=== PATIENT | male | born 1975 | race Caucasian/White ===

== ENCOUNTER → 2018-01-08 16:58 | Outpatient (CLI) | payer OTHER, SELFPAY ==
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
== END ==
PROVIDERS: Family Provider Family Medicine; PCP Family Medicine; Referring Provider Family Medicine; Visit Provider Family Medicine
DX: S80.00XA Contusion of unspecified knee, initial encounter (principal); S13.4XXA Sprain of ligaments of cervical spine, initial encounter
CPT/HCPCS: 72040; 73564

== ENCOUNTER → 2018-01-30 11:51 | Outpatient (CLI) | payer OTHER, SELFPAY ==
[2016-12-02 08:51] VITALS: BMI 29.6
--- NOTE | 2018-01-30 11:57 | RAD_ITS ---
STUDY: X-RAY - SACRUM/COCCYX REASON FOR EXAM: Male, 42 years old. Fall and pain TECHNIQUE: 3 view(s) of the sacrum and coccyx were obtained. COMPARISON: None. FINDINGS: Normal bilateral sacroiliac joints. Normal visualized sacral ala and fused sacral bodies. Normal sacrococcygeal junction with a normal angulation. Normal coccygeal segments. The presacral soft tissue structures are unremarkable. Lower abdominal wall hernia mesh. RAD/Sacrum-Coccyx min 2 Views IMPRESSION: No acute osseous injury is evident. Electronically Signed: Nikita Louis MD at 5:09 EST Tel , Service support ,
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
== END ==
PROVIDERS: Family Provider Family Medicine; PCP Family Medicine; Referring Provider Family Medicine; Visit Provider Family Medicine
DX: S30.0XXA Contusion of lower back and pelvis, initial encounter (principal)
CPT/HCPCS: 72220

== ENCOUNTER 2018-06-24 11:00 | Outpatient (RCR) | payer OTHER, SELFPAY ==
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
--- NOTE | 2018-07-14 08:47 | HP.PTDCNRP_ITS ---
HP - Discharge Summary (1) - Patient Information IZABELLA ROWLAND was seen in my office for initial evaluation on 02/04/18. The following Plan of Care was established for this patient: Initial Frequency: 2x /Week Initial Duration: 4 Weeks - Anticipated Interventions Patient/Client Instruction: Educate patient on: Condition, Plan of Care For the Purpose of:: To decrease pain, To increase ROM, To improve nutrient delivery to tissue, To increase oxygenation perfusion, To improve muscle performance and motor function, To increase tolerance to activity/condition/position, To improve ability of physical actions for home/c ommunity/work/leisure, To improve health of tissue, To decrease soft tissue restriction, To increase flexibility/ROM, To reduce risk of recurrence, To improve ability to perform tasks related to life management Therapeutic Exercise to Include: Strength training, Postural training, Flexibilty training, Active ROM For the Purpose of:: To decrease pain, To increase ROM, To increase tolerance to activity/condition/position, To improve performance and independence with ADL's, To improve ability of physical actions for home/community/work/leisure, To improve health of tissue, To decrease soft tissue restriction, To increase flexibility/ROM, To reduce risk of recurrence, To improve ability to perform tasks related to life management Manual Therapy Techniques to Include: Soft tissue mobilization Comment: STM CERVICAL For the Purpose of:: To decrease pain, To increase ROM, To improve nutrient delivery to tissue, To increase oxygenation perfusion, To improve muscle performance and motor function, To improve health of tissue, To decrease soft tissue restriction, To foster healthy habits This patient was last seen in our office 06/24/18. Pertinent comments regarding their Physical therapy will appear below: Pt. was treated for his neck, back and leg pain. Pt. had a longer episode of care for her neck and L scapular region. He was ultimately treated for his neck pain with thoracic mobilzations and DN. PT. made good progress. Pt. will be DC t o HEP at this point in time. At this point I will be discontinuing this patient from physical therapy. I would be happy to see this patient again in the future if found appropriate by the physician. Thank you! Charles Thomas, JESSICA
== END 2018-06-24 19:00 | disposition home or self-care (01) ==
LOC: PT 11:00
PROVIDERS: Family Provider Family Medicine; PCP Family Medicine; Referring Provider Family Medicine; Visit Provider Family Medicine
DX: M54.2 Cervicalgia (principal); M25.562 Pain in left knee
CPT/HCPCS: 97014; 97035; 97110; 97140; 97162; 97530; G0283

== ENCOUNTER → 2019-12-17 14:17 | Outpatient (CLI) | payer OTHER, SELFPAY | PROVIDERS: PCP Family Medicine; Referring Provider Family Medicine; Visit Provider Registered Nurse | DX: J06.9 Acute upper respiratory infection, unspecified (principal) | CPT/HCPCS: 87635; U0003 ==

== ENCOUNTER → 2020-11-09 08:12 | Outpatient (CLI) | payer OTHER, SELFPAY ==
[2020-11-09 10:35] LABS: ALB/GLOB Ratio 0.8 RATIO (0.9-2.4); AST(SGOT) 18 U/L (15-37); Alanine Aminotransfer ALT/SGPT 52 U/L (16-61); Albumin, Serum 3.5 g/dL (3.2-5.0); Alkaline Phosphatase 116 U/L (45-117); Anion Gap 7 (5-15); BUN 13 mg/dL (7-18); BUN/Creat Ratio 16.7 RATIO (10-20); Calcium,Total 8.7 mg/dL (8.5-10.1); Chloride 98 mmol/L (98-107); Cholesterol 291 mg/dL (200); Creatinine, Serum 0.78 mg/dL (0.70-1.30); EST Glomerular Filtration Rate 114 mL/min (>60); Est Glom Filt Rate - Afr Amer 138 mL/min (>60); Globulin 4.6 g/dL (2.2-4.2); Glucose 288 mg/dL (74-106); High Density Lipoprotein 43 mg/dL; Potassium 3.8 mmol/L (3.5-5.1); Protein, Total 8.1 g/dL (6.4-8.2); Sodium Level 134 mmol/L (136-145); Triglycerides 869 mg/dL
== END ==
PROVIDERS: PCP Family Medicine; Referring Provider Family Medicine; Visit Provider Family Medicine
DX: Z13.220 Encounter for screening for lipoid disorders (principal); Z82.49 Family history of ischemic heart disease and other diseases of the circulatory system
CPT/HCPCS: 36415; 80053; 80061

== ENCOUNTER 2021-04-10 07:54 | Outpatient (CLI) | payer OTHER, SELFPAY ==
[2021-04-10 10:26] LABS: Anion Gap 8 (5-15); BUN 17 mg/dL (7-18); BUN/Creat Ratio 19.6 RATIO (10-20); Calcium,Total 8.4 mg/dL (8.5-10.1); Chloride 103 mmol/L (98-107); Creatinine, Serum 0.87 mg/dL (0.70-1.30); EST Glomerular Filtration Rate 101 mL/min (>60); Est Glom Filt Rate - Afr Amer 122 mL/min (>60); Glucose 181 mg/dL (74-106); Potassium 4.1 mmol/L (3.5-5.1); Sodium Level 138 mmol/L (136-145); Thyroid Stim Hormone (TSH) 1.81 uIU/mL (0.358-3.74)
[2021-04-12 15:37] LABS: Cholesterol 202 mg/dL (200); High Density Lipoprotein 43 mg/dL; Triglycerides 321 mg/dL; Very Low Density Lipoprotein 64 mg/dL (5-40)
== END 2021-04-10 23:59 | disposition home or self-care (01) ==
LOC: MTLAB 07:56
PROVIDERS: PCP Family Medicine; Referring Provider Family Medicine; Visit Provider Family Medicine
DX: E11.9 Type 2 diabetes mellitus without complications (principal)
CPT/HCPCS: 36415; 80048; 80061; 84403; 84443

== ENCOUNTER → 2022-01-03 | Outpatient (CLI) | payer OTHER, SELFPAY ==
[2022-01-03 18:08] LABS: Hematocrit 44.7 % (40-54); Hemoglobin 15.4 g/dL (13.0-16.5); Mean Corp Hgb Conc 34.5 g/dL (32-36); Mean Corpuscular Hgb 30.9 pg (27.0-32.0); Mean Corpuscular Volume 89.6 fL (80-94); Mean Platelet Vol. 11.1 fl (6.2-12.0); Platelet Count 189 K/mm3 (150-450); RBC Distribution Width CV 12.9 % (11.6-14.6); RBC Distribution Width SD 42.3 fl (35.1-43.9); Red Blood Count 4.99 M/mm3 (4.6-6.2); White Blood Count 6.2 K/mm3 (4.4-11.0)
[2022-01-03 18:31] LABS: Anion Gap 7 (5-15); BUN 20 mg/dL (7-18); BUN/Creat Ratio 16.7 RATIO (10-20); Calcium,Total 8.9 mg/dL (8.5-10.1); Chloride 107 mmol/L (98-107); EST Glomerular Filtration Rate 69 mL/min (>60); Est Glom Filt Rate - Afr Amer 84 mL/min (>60); Glucose 104 mg/dL (74-106); Magnesium 2.3 mg/dL (1.6-2.6); Potassium 4.1 mmol/L (3.5-5.1); Sodium Level 139 mmol/L (136-145); Thyroid Stim Hormone (TSH) 1.63 uIU/mL (0.358-3.74)
== END | disposition home or self-care (01) ==
PROVIDERS: PCP Family Medicine; Referring Provider Family Medicine; Visit Provider Nurse Practitioner Family
DX: R00.2 Palpitations (principal)
CPT/HCPCS: 36415; 80048; 83735; 84443; 85027

== ENCOUNTER 2022-03-01 07:33 | Day surgery (SDC) | payer OTHER, SELFPAY ==
[2022-03-01] MEDS: Lactated Ringers 1,000 ML 15 ML IV (07:45)
[2022-03-01 07:58] VITALS: BP 126/80; PULSE 78; RESP 16; TEMP 36.4; O2SAT 95; BMI 28.8
--- NOTE | 2022-03-01 08:04 | HP.PCM_ITS ---
HPI - General HPI Narrative IZABELLA ROWLAND, is a 46 M who presents for screening colonoscopy. The patient has never had a colonoscopy in the past. He denies any family history of colon cancer. He denies any abdominal pain or blood in the stool. [facility] Medical History Dietary restriction Heartburn History of irregular heartbeat Hyperlipidemia, unspecified Injury of head and neck Leg cramps Non-smoker Normal Holter exam Type 2 diabetes mellitus without complications Home Medications empagliflozin 10 mg tablet (Jardiance) 10 mg PO DAILY 02/01/22 [History Last Taken Unknown] metformin 500 mg tablet 500 mg PO BID 02/01/22 [History Last Taken Unknown] rosuvastatin 5 mg tablet (Crestor) 5 mg PO DAILY 02/01/22 [History Last Taken Unknown] geriatric multivitamin-min 1 tab PO DAILY 02/28/22 [History Last Taken Unknown] Allergy/AdvReac Type Severity Reaction Status Date / Time No Known Allergies Allergy Verified 03/01/22 07:57 Family History (Updated 02/01/22 @ 09:54 by Khadijah Zaldivar) Father Colon cancer Mother Atrial flutter Surgical History History of hernia repair Hx of hand surgery Social History Smoking Status: Never smoker Past Medical/Surgical History Planned Operation Planned Operative Procedure/s: CSCOPE OA Previous Hospitalizations/Surgeries HX Hospitalizations: No Any Problems With Anesthesia: No You/Your Family Experience Fever (Hyperthermia) With Anes: No Cholinesterase deficiency: No Cardiovascular Hx Chest Pain within Last 2 months: No Hx Heart Attack: No Hx Hypertension: No Hx Cardiac Surgery/Stents/Etc.: No Respiratory Hx Chronic Obstructive Pulmonary Disease (COPD): No Hx Sleep Apnea: No Hx Respiratory Tract Infection/Cold (presently): No Do You Snore Loudly (louder than talking or can be heard): Yes Do You Often Feel Tired/ Fatigued/ Sleepy Dring Daytime?: No Has Anyone Observed You Stop Breathing During Sleep?: No Result (for STOP score): Negative Smoking Status: Never smoker Neurological Hx Seizures: No Hx Multiple Sclerosis: No Does patient have nerve stimulator: No Blood Disorder Hx Anemia: No Reproduction : No Genitourinary Hx Dialysis: No Musculoskeletal Hx Arthritis: No Hx Rheumatoid Arthritis: No Endocrine Hx Diabetes: No Thyroid Disease: No Psycho/Social Hx Depression: No Hx Dementia: No Miscellaneous Recent Exposure to Contagious Disease: No Allergies No Known Allergies Allergy (Verified 03/01/22 07:57) Discharge Is Pt Admitted From a Residential, or a Residential: No After D/C, Where Do you Plan to Go: Return Home Vital Signs Vital Signs Vital Signs: 03/01/22 07:58 03/01/22 07:58 Temperature 97.6 F L Temperature Source Temporal Pulse Rate 78 Respiratory Rate 16 Respiratory Pattern Normal Blood Pressure 126/80 H Blood Pressure Mean 95 Blood Pressure Source Monitor Blood Pressure Position Semi-Fowlers Blood Pressure Location Right Arm Pulse Ox 95 Oxygen Delivery Method Room Air Weight Weight: 218 lb 4.122 oz Body Mass Index (BMI) 28.8 Physical Exam Const alert and oriented x3 HEENT normocephalic Eyes PERRL Resp normal respiratory effort and normal air movement Cardio regular rate and regular rhythm GI soft to palpation, non-tender and non-distended Extremity normal to inspection Assessment & Plan Assessment/Plan (1) Encounter for screening for malignant neoplasm of colon: PLAN: I explained endoscopy in detail to the patient. I explained the risks including but not limited to stroke or heart attack with anesthesia, perforation of the GI tract, bleeding, infection. I explained that any of these could necessitate further emergency surgery. The patient understands and all questions were answered sufficiently. The patient wishes to proceed with procedure. Pj Rudd MD Pager: [facility] [address] [place] [address] [address] [place] [address] Office: Surgery Risks - Colonoscopy Risks Include but are not Limited To: Risks include but are not limited to: Bleeding, perforation requiring further surgery, inability to complete colonoscopy requiring barium enema.
--- NOTE | 2022-03-01 08:27 | OP.COLON_ITS ---
Patient Name: Nasir Sahu Procedure Date: 03/01/2022 8:06 AM Date of : 1975 Age: 46 Procedure: Colonoscopy Indications: Screening for colorectal malignant neoplasm Providers: Pj Rudd MD Referring MD: Pj Rudd MD Medicines: Monitored Anesthesia Care Patient Profile: This is a 46 year old male. Refer to note in patient chart for documentation of history and physical. Last Colonoscopy: none. The patient's first colonoscopy is today. Complications: No immediate complications. Procedure: Pre-Anesthesia Assessment: - Prior to the procedure, a History and Physical was performed, and patient medications and allergies were reviewed. The patient's tolerance of previous anesthesia was also reviewed. The risks and benefits of the procedure and the sedation options and risks were discussed with the patient. All questions were answered, and informed consent was obtained. Prior Anticoagulants: The patient has taken no previous anticoagulant or antiplatelet agents. After reviewing the risks and benefits, the patient was deemed in satisfactory condition to undergo the procedure. After I obtained informed consent, the scope was passed under direct vision. Throughout the procedure, the patient's blood pressure, pulse, and oxygen saturations were monitored continuously. The Colonoscope was introduced through the anus and advanced to the cecum, identified by appendiceal orifice and ileocecal valve. The colonoscopy was performed without difficulty. The patient tolerated the procedure well. The quality of the bowel preparation was good. Scope In: 8:16:09 AM Scope Withdrawal Time 0 hours 6 minutes 50 seconds Scope Out: 8:25:25 AM Total Procedure Duration Time 0 hours 9 minutes 16 seconds Findings: The entire examined colon appeared normal on direct and retroflexion views. Impression: - The entire examined colon is normal on direct and retroflexion views. - No specimens collected. Recommendation: - Discharge patient to home. - Resume previous diet. - Continue present medications. - Repeat colonoscopy in 10 years for screening purposes. Procedure Code(s): --- Professional --- 61151, Colonoscopy, flexible; diagnostic, including collection of specimen(s) by brushing or washing, when performed (separate procedure) Diagnosis Code(s): --- Professional --- Z12.11, Encounter for screening for malignant neoplasm of colon CPT copyright 2017 [employer]. All rights reserved. The codes documented in this report are preliminary and upon outboard motor mechanic review may be revised to meet current compliance requirements. Pj Rudd MD 03/01/2022 8:26:33 AM This report has been signed electronically. Number of Addenda: 0 Note Initiated On: 03/01/2022 8:06 AM
--- NOTE | 2022-03-01 08:28 | OP.CCLET_ITS ---
03/01/2022 Rohith Mccormick [address] [place] [address] Re : Colonoscopy procedure for Nasir Sahu Dear Dr. Mccormick This procedure was performed on Tuesday, March 01, 2022. My impressions and recommendations are as follows: Impressions : - The entire examined colon is normal on direct and retroflexion views. - No specimens collected. Recommendations : - Discharge patient to home. - Resume previous diet. - Continue present medications. - Repeat colonoscopy in 10 years for screening purposes. My findings are described in the full procedure note, which is enclosed. If I can be of further assistance, please feel free to contact me at Doctor phone number(s): , Work: . Sincerely, Pj Rudd MD 03/01/2022 8:26:33 AM This report has been signed electronically.
[2022-03-01 08:31] VITALS: BP 105/84; BP 126/80; PULSE 72; RESP 18; TEMP 36.4; O2SAT 95
[2022-03-01 08:35] VITALS: BP 107/80; BP 126/80; PULSE 72; RESP 18; O2SAT 93
[2022-03-01 08:40] VITALS: BP 106/83; BP 126/80; PULSE 69; RESP 18; O2SAT 94
[2022-03-01 08:45] VITALS: BP 117/88; BP 126/80; PULSE 68; RESP 20; TEMP 36.1; O2SAT 98
[2022-03-01 09:05] VITALS: BP 126/80
[2022-03-01 11:30] LABS: Bedside Glucose 135 mg/dL (74-106)
== END 2022-03-01 09:07 | disposition home or self-care (01) ==
LOC: EN 07:37 → AC 07:38
PROVIDERS: PCP Family Medicine; Referring Provider Surgery; Visit Provider Surgery
PROC: 0DJD8ZZ Inspection of Lower Intestinal Tract, Via Natural or Artificial Opening Endoscopic (ICD-10-PCS; CPT 45378; principal; 2022-03-01 08:25)
DX: Z12.11 Encounter for screening for malignant neoplasm of colon (principal); E11.9 Type 2 diabetes mellitus without complications; E78.5 Hyperlipidemia, unspecified; Z79.84 Long term (current) use of oral hypoglycemic drugs; Z79.899 Other long term (current) drug therapy; Z80.0 Family history of malignant neoplasm of digestive organs
CPT/HCPCS: G0121; 82962; J7120; J2405

== ENCOUNTER → 2023-01-22 | Outpatient (CLI) | payer OTHER, SELFPAY ==
[2023-01-22 11:17] LABS: ALB/GLOB Ratio 0.9 RATIO (0.9-2.4); AST(SGOT) 15 U/L (15-37); Alanine Aminotransfer ALT/SGPT 31 U/L (16-61); Albumin, Serum 3.7 g/dL (3.2-5.0); Alkaline Phosphatase 101 U/L (45-117); Anion Gap 7 (5-15); BUN 16 mg/dL (7-18); BUN/Creat Ratio 19.7 RATIO (10-20); Calcium,Total 8.9 mg/dL (8.5-10.1); Chloride 106 mmol/L (98-107); Cholesterol 203 mg/dL (200); Creatinine, Serum 0.81 mg/dL (0.70-1.30); EST Glomerular Filtration Rate 108 mL/min (>60); Est Glom Filt Rate - Afr Amer 130 mL/min (>60); Globulin 4.2 g/dL (2.2-4.2); Glucose 147 mg/dL (74-106); High Density Lipoprotein 53 mg/dL; Potassium 4.2 mmol/L (3.5-5.1); Protein, Total 7.9 g/dL (6.4-8.2); Sodium Level 137 mmol/L (136-145); Thyroid Stim Hormone (TSH) 1.25 uIU/mL (0.358-3.74); Triglycerides 363 mg/dL; Very Low Density Lipoprotein 73 mg/dL (5-40)
== END | disposition home or self-care (01) ==
LOC: MFPLAB 08:57
PROVIDERS: PCP Family Medicine; Visit Provider Family Medicine
DX: E11.9 Type 2 diabetes mellitus without complications (principal)
CPT/HCPCS: 36415; 80053; 80061; 84403; 84443

== ENCOUNTER 2023-02-13 06:15 | Emergency (ER) | payer OTHER, SELFPAY ==
[2023-02-13 06:16] VITALS: PULSE 71; RESP 14; TEMP 36; O2SAT 98; BMI 30.3
--- NOTE | 2023-02-13 06:18 | EKG12_ITS ---
Test Reason : CHEST PAIN Blood Pressure : / mmHG Vent. Rate : 072 BPM Atrial Rate : 072 BPM P-R Int : 172 ms QRS Dur : 130 ms QT Int : 402 ms P-R-T Axes : 027 079 040 degrees QTc Int : 440 ms Normal sinus rhythm Possible Left atrial enlargement Abnormal ECG Confirmed by BOLA MAN, LITZY ([id number]), scientific publications editor MARCUS GOTTLIEB ([id number]) on 02/17/2023 1:58:16 P M Referred By: GRETCHEN Confirmed By:LEIDA PLAZA MD
--- NOTE | 2023-02-13 06:38 | RAD_ITS ---
EXAM: XR CHEST, 2 VIEWS CLINICAL INDICATION: chest pain TECHNIQUE: Frontal and lateral views of the chest. COMPARISON: 2 view chest 01/30/2017 FINDINGS: LUNGS AND PLEURAL SPACES: Unremarkable. No consolidation or edema. No pneumothorax. No effusion. HEART: Unremarkable. Cardiac silhouette not enlarged. MEDIASTINUM: Central airways and mediastinal contour are unremarkable. BONES/JOINTS: Unremarkable. No acute fracture. SOFT TISSUES: Unremarkable. RAD/Chest PA and Lateral IMPRESSION: No radiographic evidence of acute cardiopulmonary disease. Electronically Signed: Maykel Huff MD at 7:17 EST ,
[2023-02-13 06:57] LABS: Absolute Lymphocyte Count 1.58 X10^3/uL (0.83-4.51); Absolute Neutrophil Count 2.3 X10^3/uL (2.0-7.7); Basophil# 0.03 X10^3/uL; Basophil% 0.7 % (0-1); Eosinophil# 0.11 X10^3/uL; Eosinophils% 2.4 % (0-5); Hematocrit 42.7 % (40-54); Hemoglobin 14.1 g/dL (13.0-16.5); Lymphocyte # 1.58 X10^3/ul (0.83-4.51); Lymphocyte % 34.6 % (19-41); Mean Corpuscular Hgb 29.5 pg (27.0-32.0); Mean Corpuscular Volume 89.3 fL (80-94); Monocyte# 0.49 X10^3/uL; Monocyte% 10.7 % (0-10); NRBC Flagged by Analyzer 0 % (0-5); Neutrophil # 2.33 X10^3/uL (2.7-7.7); Neutrophil % 51.2 % (47-70); Platelet Count 182 K/mm3 (150-450); RBC Distribution Width CV 12.5 % (11.6-14.6); RBC Distribution Width SD 41.2 fl (35.1-43.9); Red Blood Count 4.78 M/mm3 (4.6-6.2); White Blood Count 4.6 K/mm3 (4.4-11.0)
[2023-02-13] MEDS: Aspirin 81 MG TAB.CHEW 324 MG PO (06:58)
[2023-02-13 07:05] VITALS: BP 153/93
--- NOTE | 2023-02-13 07:14 | ED.VIS.CHEST ---
HPI History of Present Illness Chief Complaint: Chest Pain Informant: patient Narrative Narrative: Patient is a 47-year-old male with history of diabetes, hyperlipidemia and family history of coronary artery disease presenting with chest pain. Patient states has been getting mild intermittent chest pain over the left side for past few weeks. He actually has a stress test scheduled for March 10. He notes that he went to the gym this morning and noticed a sharp pain underneath his left nipple that radiated up to his shoulder and neck. He notes that when he was in radiology getting his chest x-ray taken here he took a deep breath it was slightly worse. He denies any shortness of breath or difficulty breathing. About 3 weeks ago he did have a mild cold and now has an intermittent cough but is not much of it. Notes when coming here he did have some chills but denies any diaphoresis, nausea or vomiting. Did have a cardiac catheterization 15 years ago which he states was normal. Patient has had some recent travel to [place] but denies any significantly long flights or immobilization. Denies any history of DVT or PE. No other complaints or concerns at this time. [facility] Medical History Dietary restriction Heartburn History of irregular heartbeat Hyperlipidemia, unspecified Injury of head and neck Leg cramps Non-smoker Normal Holter exam Type 2 diabetes mellitus without complications Home Medications empagliflozin 10 mg tablet (Jardiance) 10 mg PO DAILY 02/01/22 [History Last Taken Unknown] metformin 500 mg tablet 500 mg PO BID 02/01/22 [History Last Taken Unknown] rosuvastatin 5 mg tablet (Crestor) 5 mg PO DAILY 02/01/22 [History Last Taken Unknown] geriatric multivitamin-min 1 tab PO DAILY 02/28/22 [History Last Taken Unknown] Allergy/AdvReac Type Severity Reaction Status Date / Time No Known Allergies Allergy Verified 03/01/22 07:57 Family History Father Colon cancer Mother Atrial flutter Surgical History History of hernia repair Hx of hand surgery Social History Smoking Status: Never smoker ROS ROS ED Constitutional Constitutional ED: Denies chills or fever(s) Eyes Eyes: Denies change in vision Cardiovascular Cardiovascular: Reports as per HPI and chest pain; Denies palpitations Respiratory/Chest Respiratory/Chest: Denies cough, dyspnea or dyspnea on exertion Gastrointestinal Gastrointestinal: Denies abdominal pain, nausea or vomiting Musculoskeletal Musculoskeletal: Denies arthralgias, back pain or myalgias Integumentary Denies rash Neurologic Neurologic: Denies headache(s) or paresthesias Hematologic/Lymphatic Hematologic/Lymphatic: Denies easy bleeding or easy bruising EXAM Physical Exam Const Vital Signs: 02/13/23 06:16 02/13/23 06:18 02/13/23 07:05 Temperature 96.8 F L Temperature Source Temporal Pulse Rate 71 Respiratory Rate 14 Respiratory Effort Normal Blood Pressure Blood Pressure Mean Pulse Ox 98 Oxygen Delivery Method Room Air Room Air 02/13/23 07:05 02/13/23 08:13 Temperature Temperature Source Pulse Rate 60 Respiratory Rate 14 Respiratory Effort Blood Pressure 153/93 H 128/88 H Blood Pressure Mean 113 101 Pulse Ox 94 Oxygen Delivery Method Room Air Positive well nourished and well developed General Appearance ED: well developed and NAD HEENT Reports moist mucous membranes Eyes PERRL Neck supple and no JVD Chest Wall inspection of chest normal and palpation of chest normal Resp normal respiratory effort and clear to auscultation bilaterally Cardio regular rate, regular rhythm and no murmurs Peripheral Pulses: pulses 2+ throughout GI normal to inspection, nondistended, normoactive bowel sounds, soft to palpation and non-tender Extremity normal to inspection General Extremety ED: Negative for edema General Extremity: Negative for edema Neuro oriented x3 Sensorium / Orientation: awake and alert Motor Exam: Negative for general weakness Psych mental status grossly normal Skin no rashes or lesions noted and no wounds Heart Score History: Slightly/Non-Suspicious ECG: Normal Age: >45 - <65 years Risk Factors: >/= 3 Risk Factors or History of CAD Score: 3 MDM MDM MDM Narrative Medical decision making narrative: Patient is evaluated for intermittent chest pain has been waxing and waning over the past few weeks. Seems to have a pleuritic component. I does have up a strong history of coronary artery disease with his brothers and risk factors including diabetes and hyperlipidemia. Will obtain cardiac workup including delta high-sensitivity troponin. Will also check a D-dimer given the pleuritic nature of the pain and his travel to and from [place]. Anticipate that if workup is negative patient can be discharged home. Patient agreeable at this time. D dimer is normal. Initial high sensitivity troponin is normal. CBC and CMP otherwise largely unremarkable. He is mildly hyperglycemic but has known history of diabetes. On repeat evaluation has no further chest pain. Will be discharged home if delta high-sensitivity troponin is normal. Will follow-up outpatient for stress test. He is given return precautions. Patient agreeable to plan of care. Lab Data Attestation: I reviewed the patient's lab results. Labs: Laboratory Results - last 24 hr 02/13/23 02/13/23 06:01 07:25 WBC 4.6 RBC 4.78 Hgb 14.1 Hct 42.7 MCV 89.3 MCH 29.5 MCHC 33.0 RDW Std Deviation 41.2 RDW Coeff of Taylor 12.5 Plt Count 182 MPV 10.0 Immature Gran % (Auto) 0.400 Neut % (Auto) 51.2 Lymph % (Auto) 34.6 [place] % (Auto) 10.7 H Eos % (Auto) 2.4 Baso % (Auto) 0.7 Absolute Neuts (auto) 2.3 Absolute Lymphs (auto) 1.58 Nucleated RBC % 0 D-Dimer Quant (PE/DVT) < 0.27 L Sodium 140 Potassium 3.7 Chloride 107 Carbon Dioxide 26.0 Anion Gap 7 BUN 16 Creatinine 0.81 Estim Creat Clear Calc 127.41 Est GFR (MDRD) Af Amer 131 Est GFR (MDRD) Non-Af 108 BUN/Creatinine Ratio 19.8 Glucose 195 H Calcium 8.3 L Troponin I High Sens 4 Radiography Chest X-Ray - ED: 2 View, Read by ED Physician and No Acute Disease Diagnostic Testing: Clinical Impression(s) from Imaging Studies Chest X-Ray 02/13/23 06:38 IMPRESSION: No radiographic evidence of acute cardiopulmonary disease. Electronically Signed: Maykel Huff MD at 7:17 EST , Rhythm Strip Rhythm Strip: Sinus Rhythm Rate: 72 Ectopy: None EKG Initial EKG: Attestation: I personally reviewed and interpreted this EKG as follows: Interpretation: Sinus Rhythm Comments: Normal sinus rhythm at a rate of 72 bpm Normal axis Possible left atrial enlargement Normal intervals Normal ST segments Computer interpretation shows nonspecific intraventricular block which I disagree with and believe that this is normal sinus rhythm Prior EKG tracings: not available for review Prior: No Prior Discharge Plan Triage Chief Complaint: Chest Pain ED Provider: Reva Joya Dx/Rx/DC Orders Clinical Impression: Diabetes mellitus, Chest pain Instructions: ED Chest Pain, Uncertain Cause Prescriptions: No Action metformin 500 mg tablet 500 mg PO BID Jardiance 10 mg tablet 10 mg PO DAILY rosuvastatin [Crestor] 5 mg tablet 5 mg PO DAILY Multivitamin, Mineral Formula Tablet 1 tab PO DAILY Primary Care Provider: Rohith Mccormick Referrals: Rohith Mccormick MD [Primary Care Provider] - Activity Restrictions/Additional Instructions: The exact cause of your chest pain is not clear however based on your workup today there does not appear to be any acute cardiac event occurring. At this time we think you are safe to follow-up outpatient. Please follow-up with your outpatient stress test as already scheduled. Return to the ER if you have a progression or worsening of your symptoms or further concerns.
[2023-02-13 07:18] LABS: Anion Gap 7 (5-15); BUN 16 mg/dL (7-18); BUN/Creat Ratio 19.8 RATIO (10-20); Calcium,Total 8.3 mg/dL (8.5-10.1); Chloride 107 mmol/L (98-107); Creatinine, Serum 0.81 mg/dL (0.70-1.30); EST Glomerular Filtration Rate 108 mL/min (>60); Est Glom Filt Rate - Afr Amer 131 mL/min (>60); Estimated Creatinine Clearance 127.41 ml/min; Glucose 195 mg/dL (74-106); Potassium 3.7 mmol/L (3.5-5.1); Sodium Level 140 mmol/L (136-145); Troponin-I HS (w/2H Reflex) 4 pg/mL (3.0-78.0)
[2023-02-13 08:03] LABS: D-Dimer Quantitative (DVT/PE) < 0.27 FEU/ug/m (0.27-0.49)
[2023-02-13 08:13] VITALS: BP 128/88; PULSE 60; RESP 14; O2SAT 94
[2023-02-13 08:48] LABS: Reflex Troponin-HS? (from REC) Y
[2023-02-13 09:50] VITALS: BP 143/96
[2023-02-13 10:00] VITALS: BP 133/92; PULSE 67; RESP 16; O2SAT 96
[2023-02-13 10:13] LABS: Troponin-I HS 5 pg/mL (3.0-78.0)
== END 2023-02-13 10:29 | disposition home or self-care (01) ==
PROVIDERS: Emergency Provider Emergency Medicine; PCP Family Medicine; Visit Provider Emergency Medicine
DX: E11.9 Type 2 diabetes mellitus without complications (principal); R07.9 Chest pain, unspecified
CPT/HCPCS: 71046; 80048; 84484; 85025; 85379; 93005; 99284; A4216

== ENCOUNTER → 2023-03-24 | Outpatient (CLI) | payer OTHER, SELFPAY ==
--- NOTE | 2023-03-24 13:04 | STRESSREP_ITS ---
Stress Test Report Exercise myocardial perfusion stress test. 47-year-old male with a history of chest pain Stress protocol: Resting EKG demonstrates normal sinus rhythm with a rate of 74 bpm resting blood pressure is 128/88 mmHg. The patient exercised according to the regular Eleno protocol for a total duration of 10 minutes attaining a maximum heart rate of 155 bpm which was 89% of maximum predicted heart rate; the maximum workload was 13.6 metabolic equivalents. At rest there were no ST or T wave changes noted to suggest ischemia and at peak exercise upsloping ST changes only were noted which did not meet the criteria for ischemia. No clinical angina was noted the test was terminated due to the target heart rate being achieved/fatigue. The peak blood pressure was 190/90 mmHg. Rate-pressure product was 26,900. Myocardial perfusion protocol. 14.6 mCi of technetium 99m sestamibi was injected at rest. The patient exercised according to regular Eleno protocol for total duration of 10 minutes and at peak exercise 44.7 mCi of technetium 99m sestamibi was injected stress images were obtained stress and rest images were reconstructed in comparing the short axis vertical long and horizontal long axis. Gated images were also obtained. Perfusion SPECT analysis: Review of the stress images demonstrate normal uptake of tracer noted in all ar eas of the myocardium. The resting images similarly demonstrate normal uptake of tracer noted in all areas of the myocardium. No areas of reversibility are noted to suggest ischemia no previous infarct was noted. Gated SPECT analysis: The gated ejection fraction is 59%. Conclusion: Normal exercise myocardial perfusion stress test at a high workload Preserved ejection fraction.
== END | disposition home or self-care (01) ==
PROVIDERS: PCP Family Medicine; Referring Provider Family Medicine; Visit Provider Family Medicine
DX: R07.9 Chest pain, unspecified (principal)
CPT/HCPCS: 78452; 93017; A9500; A4216

== ENCOUNTER → 2024-12-20 | Outpatient (CLI) | payer OTHER, SELFPAY ==
--- OUTSIDE RECORDS SUMMARY | 2024-12-20 12:12 | XMS RPT_ITS | CCD ---
Author Organization [facility] Care Team Providers Care Costume Rental Clerk Name Role Phone Dr. Rohith Mccormick Primary Care Provider [phone] Khadijah Zaldivar Attending Provider Unavailable Dr. Pj Rudd Attending Provider Dr. Pj Rudd Referring Provider Dr. Pj Rudd Other Provider Dr. Rohith Mccormick Primary Care Provider Dr. Rohith Mccormick Referring Provider Dr. Rohith Mccormick Other Provider Dr. Andrea Giles Attending Provider [phone] Roihth Mccormick Attending Unavailable Rohith Mccormick Primary Care Unavailable Rohith Mccormick Attending Unavailable Rohith Mccormick Referring Unavailable Rohith Mccormick Primary Care Unavailable Reva Joya Attending Unavailable Rohith Mccormick Primary Care Unavailable Rohith Mccormick Consulting Unavailable Rohith Mccormick Referring Unavailable Rohith Mccormick Primary Care Unavailable Andrea Giles Attending Unavailable Medications Current Medications Medication Drug Class(es) Dates Sig (Normalized) Sig (Original) acetaminophen 325 mg / oxyCODONE hydrochloride 5 mg oral tablet (1 source) Opioid Agonist Start: 12-02-2016 take 1 tablet by mouth every six hours as needed Oxycodone-Acetamin ophen Active 1 TABLET PO EVERY 6 HOURS NEEDED December 02, 2016 10:27am empagliflozin 10 mg oral tablet (4 sources) Sodium-Glucose Cotransporter 2 Inhibitor Start: 02-01-2022 take 1 tablet by mouth once daily Empagliflozin (Jardiance) 10 mg tablet Active 10 MG PO DAILY February 01, 2022 12:00am Geriatric Multivitamin-Min (Multivitamin, Mineral Formula) Tablet (4 sources) Start: 02-28-2022 take 1 tablet by mouth once daily Geriatric Multivitamin-Min (Multivitamin, Mineral Formula) Tablet Active 1 TABLET PO DAILY February 28, 2022 12:00am metFORMIN hydrochloride 500 mg oral tablet (4 sources) Biguanide Start: 02-01-2022 take 500 mg by mouth twice daily Metformin Active 500 MG PO TWICE A DAY February 01, 2022 12:00am rosuvastatin calcium 5 mg oral tablet (4 sources) HMG-CoA Reductase Inhibitor Start: 02-01-2022 take 1 tablet by mouth once daily Rosuvastatin (Crestor) 5 mg tablet Active 5 MG PO DAILY February 01, 2022 12:00am Problems Problem Classification Problem Date Documented Da te Episodic/Chronic Diabetes mellitus without complication (3 sources) Diabetes mellitus; Translations: [Type 2 diabetes mellitus without complications] Onset: 01-28-2023 02-21-2023 Chronic Nonspecific chest pain (4 sources) Chest pain; Translations: [Chest pain, unspecified] Onset: 04-01-2023 02-21-2023 Episodic Other screening for suspected conditions (not mental disorders or infectious disease) (5 sources) Patient encounter status; Translations: [Encounter for screening for malignant neoplasm of colon] Episodic Results Test Name Value Interpretation Reference Range Facility Stress Reporton 03-24-2023 Stress Report [facility] [address] [place] [address] MR#: [id number] Acct: [id number] Name: IZABELLA ROWLAND Sakshi Rep #: [id number] : 1975 47 From: Andrea Giles MD Primary Care: Dr. Rohith Mccormick MD Status: REG [facility] Referring Dr: Rohith Mccormick MD Sex: M C Stress Test Report Exercise myocardial perfusion stress test. 47-year-old male with a history of chest pain Stress protocol: Resting EKG demonstrates normal sinus rhythm with a rate of 74 bpm resting blood pressure is 128/88 mmHg. The patient exercised according to the regular Eleno protocol for a total duration of 10 minutes attaining a maximum heart rate of 155 bpm which was 89% of maximum predicted heart rate; the maximum workload was 13.6 metabolic equivalents. At rest there were no ST or T wave changes noted to suggest ischemia and at peak exercise upsloping ST changes only were noted which did not meet the criteria for ischemia. No clinical angina was noted the test was terminated due to the target heart rate being achieved/fatigue. The peak blood pressure was 190/90 mmHg. Rate-pressure product was 26,900. Myocardial perfusion protocol. 14.6 mCi of technetium 99m sestamibi was injected at rest. The patient exercised according to regular Eleno protocol for total duration of 10 minutes and at peak exercise 44.7 mCi of technetium 99m sestamibi was injected stress images were obtained stress and rest images were reconstructed in comparing the short axis vertical long and horizontal long axis. Gated images were also obtained. Perfusion SPECT analysis: Review of the stress images demonstrate normal uptake of tracer noted in all areas of the myocardium. The resting images similarly demonstrate normal uptake of tracer noted in all areas of the myocardium. No areas of reversibility are noted to suggest ischemia no previous infarct was noted. Gated SPECT analysis: The gated ejection fraction is 59%. Conclusion: Normal exercise myocardial perfusion stress test at a high workload Preserved ejection fraction. 03/24/23 1307 Date Andrea Giles MD CC: Dr. Rohith Mccormick MD Date Dictated: 03/24/23 1304 Date Transcribed: 03/24/23 130 Archivist: CO Signed Normal [facility] 12 Lead EKGon 02-13-2023 12 Lead EKG [facility] Cardiovascular Services [address] [place] [address] 12 Lead EKG 02/13/23 0621 MR#: [id number] Acct: [id number] Name: IZABELLA ROWLAND Sakshi Rep #: [id number] : 1975 47 From: Verónica Plaza MD Attending Dr: Status: DEP ER Ordering Dr: Reva Joya DO Date: 02/13/23 Location: ED Sex: M C Admitted: Test Reason : CHEST PAIN Blood Pressure : / mmHG Vent. Rate : 072 BPM Atrial Rate : 072 BPM P-R Int : 172 ms QRS Dur : 130 ms QT Int : 402 ms P-R-T Axes : 027 079 040 degrees QTc Int : 440 ms Normal sinus rhythm Possible Left atrial enlargement Abnormal ECG Confirmed by BOLA MAN, LITZY ([id number]), telegraph editor MARCUS GOTTLIEB ([id number]) on 02/17/2023 1:58:16 PM Referred By: CG Confirmed By:LEIDA PLAZA MD 02/17/23 1358 Date Verónica Plaza MD CC: Dr. Rohith Mccormick MD; Dr. Reva Joya, DO Signed Normal [facility] Absolute lymphocyte countOrd ered By: Reav Joya on 02-13-2023 Lymphocytes Auto (Unsp spec) [#/Vol] 1.58 10*3/uL 0.83-4.51 [facility] Basic Metabolic Profile (BMP )on 02-13-2023 BUN/CRE 19.8 RATIO Normal 10-20 [facility] Comment on above: Order Comment: 1 Y Performed By: #### L 100.0100, L500.2500, L501.5425 #### [facility] Laboratory [address] [place], [address] CA,Total 8.3 mg/dL Low 8.5-10.1 [facility] Comment on above: Order Comment: 1 Y Performed By: #### L 100.0100, L500.2500, L501.5425 #### [facility] Laboratory [address] [place], [address] Chloride [Moles/Vol] 107 mmol/L Normal 98-107 [facility] Comment on above: Order Comment: 1 Y Performed By: #### L 100.0100, L500.2500, L501.5425 #### [facility] [address] [place], [address] CO2 [Moles/Vol] 26.0 mmol/L Normal 21.0-32.0 [facility] Comment on above: Order Comment: 1 Y Performed By: #### L 100.0100, L500.2500, L501.5425 #### [facility] [address] [place], [address] Creatinine [Mass/Vol] 0.81 mg/dL Normal 0.70-1.30 [facility] Comment on above: Order Comment: 1 Y Result Comment: The validity of the calculated GFR GFRAA in patients over 70 years has not been determined. Clinical correlation is essential. Performed By: #### L 100.0100, L500.2500, L501.5425 #### [facility] [address] [place], [address] ECRCL 127.41 ml/min Normal [facility] Comment on above: Order Comment: 1 Y Performed By: #### L 100.0100, L500.2500, L501.5425 #### [facility] [address] [place], [address] EST GFR - AA 131 mL/min Normal >60 [facility] Comment on above: Order Comment: 1 Y Result Comment: Afri can Moroccan GFR Calc Performed By: #### L 100.0100, L500.2500, L501.5425 #### [facility] [address] [place], [address] GAP 7 Normal 5-15 [facility] Comment on above: Order Comment: 1 Y Performed By: #### L 100.0100, L500.2500, L501.5425 #### [facility] [address] [place], [address] GFR/1.73 sq M.predicted among non-blacks MDRD (S/P/Bld) [Vol rate/Area] 108 mL/min/{1.73_m2} Normal >60 [facility] Comment on above: Order Comment: 1 Y Result Comment: Non- GFR Calc Performed By: #### L 100.0100, L500.2500, L501.5425 #### [facility] [address] [place], [address] Glucose [Mass/Vol] 195 mg/dL High 74-106 [facility] Comment on above: Order Comment: 1 Y Result Comment: Fast ing Glucose result greater than or equal to 126 mg/dL suggests DIABETES MELLITUS per A.D.A. criteria. Performed By: #### L 100.0100, L500.2500, L501.5425 #### [facility] [address] [place], [address] Potassium [Moles/Vol] 3.7 mmol/L Normal 3.5-5.1 [facility] Comment on above: Order Comment: 1 Y Performed By: #### L 100.0100, L500.2500, L501.5425 #### [facility] [address] [place], [address] Sodium [Moles/Vol] 140 mmol/L Normal 136-145 [facility] Comment on above: Order Comment: 1 Y Performed By: #### L 100.0100, L500.2500, L501.5425 #### [facility] [address] [place], [address] Urea nitrogen [Mass/Vol] 16 mg/dL Normal 7-18 [facility] Comment on above: Order Comment: 1 Y Performed By: #### L 100.0100, L500.2500, L501.5425 #### [facility] [address] [place], [address] Basophil percentageOrdered B y: Reva Joya on 02-13-2023 Basophils/100 WBC (Bld) 0.7 % 0-1 [facility] Chloride [Moles/Vol] 107 mmol/L 98-107 [facility] Eosinophils/100 WBC (Bld) 2.4 % 0-5 [facility] Glucose [Mass/Vol] 195 mg/dL 74-106 [facility] Comment on above: Fasting Glucose resu lt greater than or equal to 126 mg/dL suggests DIABETES MELLITUS per A.D.A. criteria. Neutrophils (Bld) [#/Vol] 2.3 10*3/uL 2.0-7.7 [facility] Neutrophils/100 WBC (Bld) 51.2 % 47-70 [facility] Potassium [Moles/Vol] 3.7 mmol/L 3.5-5.1 [facility] Sodium [Moles/Vol] 140 mmol/L 136-145 [facility] WBC (Bld) [#/Vol] 4.6 10*3/uL 4.4-11.0 [facility] Blood erythrocytes count (nu mber/volume)Ordered By: Reva Joya on 02-13-2023 RBC (Bld) [#/Vol] 4.78 10*6/uL 4.6-6.2 [facility] Blood hemoglobin measurement (mass/volume)Ordered By: Reva Joya on 02-13-2023 Hemoglobin (Bld) [Mass/Vol] 14.1 g/dL 13.0-16.5 [facility] Blood lymphocytes/100 leukoc ytesOrdered By: Reva Joya on 02-13-2023 Lymphocytes/100 WBC (Bld) 34.6 % 19-41 [facility] Blood monocytes/100 leukocyt esOrdered By: Reva Joya on 02-13-2023 Monocytes/100 WBC (Bld) 10.7 % 0-10 [facility] Blood platelet mean volumeOr dered By: Reva Joya on 02-13-2023 Platelet mean volume (Bld) [Entitic vol] 10.0 fL 6.2-12.0 [facility] CBC W/Diff, Automatedon 01-31 Absolute Lymph 1.58 X10 3/uL Normal 0.83-4.51 [facility] Comment on above: Performed By: #### L 100.0100, L500.2500, L501.5456 #### [facility] Laboratory [address] [place] [address]. [place], [place], [id number] Absolute Neut 2.3 X10 3/uL Normal 2.0-7.7 [facility] Comment on above: Performed By: #### L 100.0100, L500.2500, L501.5425 #### [facility] [address] [place], [address] Basophils/100 WBC (Bld) 0.7 % Normal 0-1 [facility] Comment on above: Performed By: #### L 100.0100, L500.2500, L501.5425 #### [facility] [address] [place], [address] Eosinophils/100 WBC (Bld) 2.4 % Normal 0-5 [facility] Comment on above: Performed By: #### L 100.0100, L500.2500, L501.5425 #### [facility] [address] [place], [address] Erythrocyte distribution width (RBC) [Ratio] 12.5 % Normal 11.6-14.6 [facility] Comment on above: Performed By: #### L 100.0100, L500.2500, L501.5425 #### [facility] [address] [place], [address] Hematocrit (Bld) [Volume fraction] 42.7 % Normal 40-54 [facility] Comment on above: Performed By: #### L 100.0100, L500.2500, L501.5425 #### [facility] [address] [place], [address] Hemoglobin (Bld) [Mass/Vol] 14.1 g/dL Normal 13.0-16.5 [facility] Comment on above: Performed By: #### L 100.0100, L500.2500, L501.5425 #### [facility] [address] [place], [address] IG% 0.400 Normal 0.0-0.9 [facility] Comment on above: Result Comment: IG% - Immature Granulocytes (promyelocytes, myelocytes and metamyelocytes) > 1% indicates that a LEFT SHIFT is Present. Performed By: #### L 100.0100, L500.2500, L501.5425 #### [facility] [address] [place], [address] Lymphocytes/100 WBC (Bld) 34.6 % Normal 19-41 [facility] Comment on above: Performed By: #### L 100.0100, L500.2500, L501.5425 #### [facility] [address] [place], [address] MCH (RBC) [Entitic mass] 29.5 pg Normal 27.0-32.0 [facility] Comment on above: Performed By: #### L 100.0100, L500.2500, L501.5425 #### [facility] [address] [place], [address] MCHC (RBC) [Mass/Vol] 33.0 g/dL Normal 32-36 [facility] Comment on above: Performed By: #### L 100.0100, L500.2500, L501.5425 #### [facility] [address] [place], [address] MCV (RBC) [Entitic vol] 89.3 fL Normal 80-94 [facility] Comment on above: Performed By: #### L 100.0100, L500.2500, L501.5425 #### [facility] [address] [place], [address] Monocytes/100 WBC (Bld) 10.7 % High 0-10 [facility] Comment on above: Performed By: #### L 100.0100, L500.2500, L501.5425 #### [facility] [address] [place], [address] Neutrophils/100 WBC (Bld) 51.2 % Normal 47-70 [facility] Comment on above: Performed By: #### L 100.0100, L500.2500, L501.5425 #### [facility] [address] [place], [address] Nucleated RBC (Bld) [#/Vol] 0 10*3/uL Normal 0-5 [facility] Comment on above: Performed By: #### L 100.0100, L500.2500, L501.5425 #### [facility] [address] [place], [address] Platelet mean volume (Bld) [Entitic vol] 10.0 fL Normal 6.2-12.0 [facility] Comment on above: Performed By: #### L 100.0100, L500.2500, L501.5425 #### [facility] [address] [place], [address] Platelets (Bld) [#/Vol] 182 10*3/uL Normal 150-450 [facility] Comment on above: Performed By: #### L 100.0100, L500.2500, L501.5425 #### [facility] [address] [place], [address] RBC (Bld) [#/Vol] 4.78 10*6/uL Normal 4.6-6.2 [facility] Comment on above: Performed By: #### L 100.0100, L500.2500, L501.5425 #### [facility] [address] [place], [address] RDW SD 41.2 fl Normal 35.1-43.9 [facility] Comment on above: Performed By: #### L 100.0100, L500.2500, L501.5425 #### [facility] [address] [place], [address] WBC (Bld) [#/Vol] 4.6 10*3/uL Normal 4.4-11.0 [facility] Comment on above: Performed By: #### L 100.0100, L500.2500, L501.5425 #### [facility] [address] [place], [address] Chest PA and Lateralon 02-13 Chest PA and Lateral [facility] Imaging Services [address] [place] [address] Chest PA and Lateral MR#: [id number] Acct: [id number] Name: IZABELLA ROWLAND Rep #: [id number] : 1975 M 47 From: Maykel Huff MD PCP: Dr. Rohith Mccormick MD Status: REG ER Study: Chest PA and Lateral Date of Exam: 02/13/23 Exam# [id number] Ordering Dr: Reva Joya DO [id number] EXAM: XR CHEST, 2 VIEWS CLINICAL INDICATION: chest pain TECHNIQUE: Frontal and lateral views of the chest. COMPARISON: 2 view chest 01/30/2017 FINDINGS: LUNGS AND PLEURAL SPACES: Unremarkable. No consolidation or edema. No pneumothorax. No effusion. HEART: Unremarkable. Cardiac silhouette not enlarged. MEDIASTINUM: Central airways and mediastinal contour are unremarkable. BONES/JOINTS: Unremarkable. No acute fracture. SOFT TISSUES: Unremarkable. RAD/Chest PA and Lateral IMPRESSION: No radiographic evidence of acute cardiopulmonary disease. Electronically Signed: Maykel Huff MD at 7:17 EST , CC: Dr. Rohith Mccormick MD; Dr. Reva Joya DO Archivist: Signed Normal [facility] D-Dimer Quantitative (DVT/PE )on 02-13-2023 D-DIMER QUANT < 0.27 Low 0.27-0.49 [facility] Comment on above: Result Comment: NORM AL D-Dimer level (<0.50) indicates no DVT or PE. Performed By: #### L 300.8000 #### [facility] Laboratory [address] [place], [address] Determination of erythrocyte mean corpuscular volume (MCV)Ordered By: Reva Joya on 02-13-2023 MCV (RBC) [Entitic vol] 89.3 fL 80-94 [facility] Emergency Department Summary on 02-13-2023 Emergency Department Summary [facility] Medical Records Department [address] [place] [address] Emergency Department Summary 02/13/23 MR#: [id number] Acct: [id number] Name: IZABELLA ROWLAND Rep #: [id number] : 1975 47 From: Reva Joya DO PCP: Dr. Rohith Mccormick MD Status:REG ER Location: ED HPI History of Present Illness Chief Complaint: Chest Pain Informant: patient Narrative Narrative: Patient is a 47-year-old male with history of diabetes, hyperlipidemia and family history of coronary artery disease presenting with chest pain. Patient states has been getting mild intermittent chest pain over the left side for past few weeks. He actually has a stress test scheduled for March 10. He notes that he went to the gym this morning and noticed a sharp pain underneath his left nipple that radiated up to his shoulder and neck. He notes that when he was in radiology getting his chest x-ray taken here he took a deep breath it was slightly worse. He denies any shortness of breath or difficulty breathing. About 3 weeks ago he did have a mild cold and now has an intermittent cough but is not much of it. Notes when coming here he did have some chills but denies any diaphoresis, nausea or vomiting. Did have a cardiac catheterization 15 years ago which he states was normal. Patient has had some recent travel to [place] but denies any significantly long flights or immobilization. Denies any history of DVT or PE. No other complaints or concerns at this time. [facility] Medical History Dietary restriction Heartburn History of irregular heartbeat Hyperlipidemia, unspecified Injury of head and neck Leg cramps Non-smoker Normal Holter exam Type 2 diabetes mellitus without complications Home Medications empagliflozin 10 mg tablet (Jardiance) 10 mg PO DAILY 02/01/22 [History Last Taken Unknown] metformin 500 mg tablet 500 mg PO BID 02/01/22 [History Last Taken Unknown] rosuvastatin 5 mg tablet (Crestor) 5 mg PO DAILY 02/01/22 [History Last Taken Unknown] geriatric multivitamin-min 1 tab PO DAILY 02/28/22 [History Last Taken Unknown] Allergy/AdvReac Type Severity Reaction Status Date / Time No Known Allergies Allergy Verified 03/01/22 07:57 Family History Father Colon cancer Mother Atrial flutter Surgical History History of hernia repair Hx of hand surgery Social History Smoking Status: Never smoker ROS ROS ED Constitutional Constitutional ED: Denies chills or fever(s) Eyes Eyes: Denies change in vision Cardiovascular Cardiovascular: Reports as per HPI and chest pain; Denies palpitations Respiratory/Chest Respiratory/Chest: Denies cough, dyspnea or dyspnea on exertion Gastrointestinal Gastrointestinal: Denies abdominal pain, nausea or vomiting Musculoskeletal Musculoskeletal: Denies arthralgias, back pain or myalgias Integumentary Denies rash Neurologic Neurologic: Denies headache(s) or paresthesias Hematologic/Lymphati c Hematologic/Lymphati c: Denies easy bleeding or easy bruising EXAM Physical Exam Const Vital Signs: 02/13/23 06:16 02/13/23 06:18 02/13/23 07:05 Temperature 96.8 F L Temperature Source Temporal Pulse Rate 71 Respiratory Rate 14 Respiratory Effort Normal Blood Pressure Blood Pressure Mean Pulse Ox 98 Oxygen Delivery Method Room Air Room Air 02/13/23 07:05 02/13/23 08:13 Temperature Temperature Source Pulse Rate 60 Respiratory Rate 14 Respiratory Effort Blood Pressure 153/93 H 128/88 H Blood Pressure Mean 113 101 Pulse Ox 94 Oxygen Delivery Method Room Air Positive well nourished and well developed General Appearance ED: well developed and NAD HEENT Reports moist mucous membranes Eyes PERRL Neck supple and no JVD Chest Wall inspection of chest normal and palpation of chest normal Resp normal respiratory effort and clear to auscultation bilaterally Cardio regular rate, regular rhythm and no murmurs Peripheral Pulses: pulses 2+ throughout GI normal to inspection, nondistended, normoactive bowel sounds, soft to palpation and non-tender Extremity normal to inspection General Extremety ED: Negative for edema General Extremity: Negative for edema Neuro oriented x3 Sensorium / Orientation: awake and alert Motor Exam: Negative for general weakness Psych mental status grossly normal Skin no rashes or lesions noted and no wounds Heart Score History: Slightly/Non-Suspici ous ECG: Normal Age: >45 - <65 years Risk Factors: >/= 3 Risk Factors or History of CAD Score: 3 MDM MDM MDM Narrative Medical deci (more content not included)... Normal [facility] Hematocrit Auto (Bld) [Volum e fraction]Ordered By: Reva Joya on 02-13-2023 Hematocrit (Bld) [Volume fraction] 42.7 % 40-54 [facility] L501.4020on 02-13-2023 TROPONIN-I HS 5 pg/mL Normal 3.0-78.0 [facility] Comment on above: Result Comment: Plea se Note: New Test Units and Gender Specific Reference Ranges. For more information see Policy Stat Procedure [place] High Sensitivity Troponin (TNIH) and attachments. Performed By: #### L 501.4020 #### [facility] Laboratory [address] [place], [place], [id number] L501.5475on 02-13-2023 TROPONIN-I HS 4 pg/mL Normal 3.0-78.0 [facility] Comment on above: Order Comment: 1 Y Result Comment: Plea se Note: New Test Units and Gender Specific Reference Ranges. For more information see Policy Stat Procedure [place] High Sensitivity Troponin (TNIH) and attachments. Performed By: #### L 100.0100, L500.2500, L501.5417 #### [facility] [address] [place], [place], [id number] Laboratory - Chemistry and C hemistry - challengeOrdered By: Reva Joya on 02-13-2023 CO2 [Moles/Vol] 26.0 mmol/L 21.0-32.0 [facility] Urea nitrogen/Creatinine [Mass ratio] 19.8 mg/mg 10-20 [facility] Laboratory - Hematology and Cell countsOrdered By: Reva Joya on 02-13-2023 Erythrocyte distribution width (RBC) [Entitic vol] 41.2 fL 35.1-43.9 [facility] Erythrocyte distribution width (RBC) [Ratio] 12.5 % 11.6-14.6 [facility] Immature granulocytes/100 WBC (Bld) 0.400 % 0.0-0.9 [facility] Comment on above: IG% - Immature Granu locytes (promyelocytes, myelocytes and metamyelocytes) > 1% indicates that a LEFT SHIFT is Present. MCH (RBC) [Entitic mass] 29.5 pg 27.0-32.0 [facility] Nucleated RBC/100 WBC (Bld) [Ratio] 0 % 0-5 [facility] MCHC Auto (RBC) [Mass/Vol]Or dered By: Reva Joya on 02-13-2023 MCHC (RBC) [Mass/Vol] 33.0 g/dL 32-36 [facility] No Panel InformationOrdered By: Reva Joya on 02-13-2023 Troponin I High Sensitivity 5 pg/mL 3.0-78.0 [facility] Comment on above: Please Note: New Shanna t Units and Gender Specific Reference Ranges. For more information see Policy Stat Procedure [place] High Sensitivity Troponin (TNIH) and attachments. D-Dimer Quantitative (PE/DVT) < 0.27 FEU/ug/m 0.27-0.49 [facility] Comment on above: NORMAL D-Dimer level (<0.50) indicates no DVT or PE. Estimated Creatinine Clearance Calc 127.41 ml/min [facility] Estimated GFR (MDRD) Amer 131 mL/min >60 [facility] Comment on above: GFR Calc Estimated GFR (MDRD) Non-Af Amer 108 mL/min >60 [facility] Comment on above: Non- GFR Calc Platelets bldOrdered By: Gloria Joya on 02-13-2023 Platelets (Bld) [#/Vol] 182 10*3/uL 150-450 [facility] Serum or plasma calcium roman urement (mass/volume)Ordered By: Reva Joya on 02-13-2023 Calcium [Mass/Vol] 8.3 mg/dL 8.5-10.1 [facility] Serum or plasma creatinine m easurement (mass/volume)Ordered By: Reva Joya on 02-13-2023 Creatinine [Mass/Vol] 0.81 mg/dL 0.70-1.30 [facility] Comment on above: The validity of the calculated GFR & GFRAA in patients over 70 years has not been determined. Clinical correlation is essential. Serum or plasma urea nitroge n measurement (mass/volume)Ordered By: Reva Joya on 02-13-2023 Urea nitrogen [Mass/Vol] 16 mg/dL 7-18 [facility] Thin prep Papanicolaou smear with manual screeningOrdered By: Reva Joya on 02-13-2023 Thin prep Papanicolaou smear with manual screening 7 5-15 [facility] Basophil percentageOrdered B y: Rohith Mccormick on 01-22-2023 Bilirubin [Mass/Vol] 0.70 mg/dL 0.20-1.00 [facility] Comment on above: For patients on eltr ombopag therapy, use of Dimension [place] TBIL is not recommended. Chloride [Moles/Vol] 106 mmol/L 98-107 [facility] Cholesterol [Mass/Vol] 203 mg/dL <200 [facility] Comment on above: <200 mg/dL Desirable 200-240 mg/dL Borderline >240 mg/dL High Risk Glucose [Mass/Vol] 147 mg/dL 74-106 [facility] Comment on above: Fasting Glucose resu lt greater than or equal to 126 mg/dL suggests DIABETES MELLITUS per A.D.A. criteria. Potassium [Moles/Vol] 4.2 mmol/L 3.5-5.1 [facility] Comment on above: Slight Hemolysis, Re sult may be falsely increased. Protein [Mass/Vol] 7.9 g/dL 6.4-8.2 [facility] Sodium [Moles/Vol] 137 mmol/L 136-145 [facility] Testosterone [Mass/Vol] 141.58 ng/dL [facility] Comment on above: CENTRAL 90% REFERENC E RANGES MALE AGE <50 197.44 - 669.58 ng/dL MALE AGE > or = 50 187.72 - 684.19 ng/dL FEMALE AGE <50 8.38 - 35.01 ng/dL FEMALE AGE > or = 50 <7.00 - 35.92 ng/dL Effective as of 09/26/20 Triglyceride [Mass/Vol] 363 mg/dL <199 [facility] Comment on above: The drugs N-Acetylcy steine and Metamizole may falsely depress this assay.Serum Triglycerides Reference Interval Normal <150 mg/dL Borderline high 150 - 199 mg/dL High 200 - 499 mg/dL Very High > or = 500 mg/dL Comprehensive Metabolic Prof ilon 01-22-2023 Albumin [Mass/Vol] 3.7 g/dL Normal 3.2-5.0 [facility] Comment on above: Order Comment: Order Date: 11/13/22Order Info: [id number] - CMPOrder Info: [id number] - LIPIDOrder Info: [id number] - TSH Performed By: #### L [id number], L500.4100, L500.4050, [id number] ####[facility] [address] [place], [place], [id number] Albumin/Globulin [Mass ratio] 0.9 {ratio} Normal 0.9-2.4 [facility] Comment on above: Order Comment: Order Date: 11/13/22Order Info: [id number] - CMPOrder Info: [id number] - LIPIDOrder Info: [id number] - TSH Performed By: #### L [id number], L500.4100, L500.4050, [id number] ####[facility] [address] [place], [place], [id number] ALK P 101 U/L Normal 45-117 [facility] Comment on above: Order Comment: Order Date: 11/13/22Order Info: [id number] - CMPOrder Info: [id number] - LIPIDOrder Info: [id number] - TSH Performed By: #### L [id number], L500.4100, L500.4050, [id number] ####[facility] [address] [place], [address] ALT [Catalytic activity/Vol] 31 U/L Normal 16-61 [facility] Comment on above: Order Comment: Order Date: 11/13/22Order Info: [id number] - CMPOrder Info: [id number] - LIPIDOrder Info: [id number] - TSH Performed By: #### L [id number], L500.4100, L500.4050, [id number] ####[facility] [address] [place], [address] AST [Catalytic activity/Vol] 15 U/L Normal 15-37 [facility] Comment on above: Order Comment: Order Date: 11/13/22Order Info: [id number] - CMPOrder Info: [id number] - LIPIDOrder Info: [id number] - TSH Result Comment: Slig ht Hemolysis, Result may be falsely increased. Performed By: #### L [id number], L500.4100, L500.4050, L509.3000 ####[facility] [address] [place], [address] Bilirubin [Mass/Vol] 0.70 mg/dL Normal 0.20-1.00 [facility] Comment on above: Order Comment: Order Date: 11/13/22Order Info: [id number] - CMPOrder Info: [id number] - LIPIDOrder Info: [id number] - TSH Result Comment: For patients on eltrombopag therapy, use of Dimension [place] TBIL is not recommended. Performed By: #### L [id number], L500.4100, L500.4050, L509.3000 ####[facility] [address] [place], [address] BUN/CRE 19.7 RATIO Normal 10-20 [facility] Comment on above: Order Comment: Order Date: 11/13/22Order Info: [id number] - CMPOrder Info: [id number] - LIPIDOrder Info: [id number] - TSH Performed By: #### L [id number], L500.4100, L500.4050, L509.3000 ####[facility] [address] [place], [address] CA,Total 8.9 mg/dL Normal 8.5-10.1 [facility] Comment on above: Order Comment: Order Date: 11/13/22Order Info: [id number] - CMPOrder Info: [id number] - LIPIDOrder Info: [id number] - TSH Performed By: #### L [id number], L500.4100, L500.4050, L509.3000 ####[facility] [address] [place], [address] Chloride [Moles/Vol] 106 mmol/L Normal 98-107 [facility] Comment on above: Order Comment: Order Date: 11/13/22Order Info: [id number] - CMPOrder Info: [id number] - LIPIDOrder Info: 3 - TSH Performed By: #### L [id number], L500.4100, L500.4050, L509.3000 ####[facility] [address], [address] CO2 [Moles/Vol] 24.0 mmol/L Normal 21.0-32.0 [facility] Comment on above: Order Comment: Order Date: 11/13/22Order Info: [id number] - CMPOrder Info: [id number] - LIPIDOrder Info: 3 - TSH Performed By: #### L [id number], L500.4100, L500.4050, L509.3000 ####[facility] [address] [place], [address] Creatinine [Mass/Vol] 0.81 mg/dL Normal 0.70-1.30 [facility] Comment on above: Order Comment: Order Date: 11/13/22Order Info: [id number] - CMPOrder Info: [id number] - LIPIDOrder Info: [id number] - TSH Result Comment: The validity of the calculated GFR GFRAA in patients over 70 years has not been determined. Clinical correlation is essential. Performed By: #### L 501.9520, L500.4100, L500.4050, L509.3000 ####[facility] [address] [place], [address] EST GFR - AA 130 mL/min Normal >60 [facility] Comment on above: Order Comment: Order Date: 11/13/22Order Info: [id number] - CMPOrder Info: [id number] - LIPIDOrder Info: [id number] - TSH Result Comment: Afri can Moroccan GFR Calc Performed By: #### L 501.9520, L500.4100, L500.4050, L509.3000 ####[facility] [address] [place], [address] GAP 7 Normal 5-15 [facility] Comment on above: Order Comment: Order Date: 11/13/22Order Info: [id number] - CMPOrder Info: [id number] - LIPIDOrder Info: [id number] - TSH Performed By: #### L 501.9520, L500.4100, L500.4050, L509.3000 ####[facility] [address] [place], [address] GFR/1.73 sq M.predicted among non-blacks MDRD (S/P/Bld) [Vol rate/Area] 108 mL/min/{1.73_m2} Normal >60 [facility] Comment on above: Order Comment: Order Date: 11/13/22Order Info: [id number] - CMPOrder Info: [id number] - LIPIDOrder Info: [id number] - TSH Result Comment: Non- GFR Calc Performed By: #### L 501.9520, L500.4100, L500.4050, L509.3000 ####[facility] [address] [place], [address] Globulin (S) [Mass/Vol] 4.2 g/dL Normal 2.2-4.2 [facility] Comment on above: Order Comment: Order Date: 11/13/22Order Info: [id number] - CMPOrder Info: [id number] - LIPIDOrder Info: [id number] - TSH Performed By: #### L 501.9520, L500.4100, L500.4050, L509.3000 ####[facility] [address] [place], [address] Glucose [Mass/Vol] 147 mg/dL High 74-106 [facility] Comment on above: Order Comment: Order Date: 11/13/22Order Info: [id number] - CMPOrder Info: [id number] - LIPIDOrder Info: [id number] - TSH Result Comment: Fast ing Glucose result greater than or equal to 126 mg/dL suggests DIABETES MELLITUS per A.D.A. criteria. Performed By: #### L 501.9520, L500.4100, L500.4050, L509.3000 ####[facility] [address] [place], [address] Potassium [Moles/Vol] 4.2 mmol/L Normal 3.5-5.1 [facility] Comment on above: Order Comment: Order Date: 11/13/22Order Info: [id number] - CMPOrder Info: [id number] - LIPIDOrder Info: [id number] - TSH Result Comment: Slig ht Hemolysis, Result may be falsely increased. Performed By: #### L 501.9520, L500.4100, L500.4050, L509.3000 ####[facility] [address] [place], [address] Sodium [Moles/Vol] 137 mmol/L Normal 136-145 [facility] Comment on above: Order Comment: Order Date: 11/13/22Order Info: [id number] - CMPOrder Info: [id number] - LIPIDOrder Info: [id number] - TSH Performed By: #### L 501.9520, L500.4100, L500.4050, L509.3000 ####[facility] [address] [place], [place], [address] T PROT 7.9 g/dL Normal 6.4-8.2 [facility] Comment on above: Order Comment: Order Date: 11/13/22Order Info: [id number] - CMPOrder Info: [id number] - LIPIDOrder Info: 3 - TSH Performed By: #### L 501.9520, L500.4100, L500.4050, L509.3000 ####[facility] [address] [place], [place], [address] Urea nitrogen [Mass/Vol] 16 mg/dL Normal 7-18 [facility] Comment on above: Order Comment: Order Date: 11/13/22Order Info: [id number] - CMPOrder Info: [id number] - LIPIDOrder Info: [id number] - TSH Performed By: #### L 501.9520, L500.4100, L500.4050, L509.3000 ####[facility] [address] [place], [place], [address] Laboratory - Chemistry and C hemistry - challengeOrdered By: Rohith Mccormick on 01-22-2023 ALP [Catalytic activity/Vol] 101 U/L 45-117 [facility] ALT [Catalytic activity/Vol] 31 U/L 16-61 [facility] CO2 [Moles/Vol] 24.0 mmol/L 21.0-32.0 [facility] Globulin (S) [Mass/Vol] 4.2 g/dL 2.2-4.2 [facility] Urea nitrogen/Creatinine [Mass ratio] 19.7 mg/mg 10-20 [facility] Lipid Profileon 01-22-2023 Cholesterol [Mass/Vol] 203 mg/dL High 200 [facility] Comment on above: Order Comment: Order Date: 11/13/22Order Info: [id number] - CMPOrder Info: [id number] - LIPIDOrder Info: 3 - TSH Result Comment: <200 mg/dL Desirable 200-240 mg/dL Borderline >240 mg/dL High Risk Performed By: #### L 501.9520, L500.4100, L500.4050, L509.3000 ####[facility] [address] [place], [address] Cholesterol in HDL [Mass/Vol] 53 mg/dL Normal [facility] Comment on above: Order Comment: Order Date: 11/13/22Order Info: [id number] - CMPOrder Info: [id number] - LIPIDOrder Info: [id number] - TSH Result Comment: The drugs N-Acetylcysteine and Metamizole may falsely depress this assay. Reference Range HDL <40 mg/dL Low HDL Cholesterol HDL >or= 60 mg/dL High HDL Cholesterol Performed By: #### L 501.9520, L500.4100, L500.4050, L509.3000 ####[facility] [address] [place], [address] Cholesterol in LDL [Mass/Vol] 77 mg/dL Normal 0-130 [facility] Comment on above: Order Comment: Order Date: 11/13/22Order Info: [id number] - CMPOrder Info: [id number] - LIPIDOrder Info: [id number] - TSH Performed By: #### L 501.9520, L500.4100, L500.4050, L509.3000 ####[facility] [address] [place], [address] Cholesterol in VLDL [Mass/Vol] 73 mg/dL High 5-40 [facility] Comment on above: Order Comment: Order Date: 11/13/22Order Info: [id number] - CMPOrder Info: [id number] - LIPIDOrder Info: [id number] - TSH Performed By: #### L 501.9520, L500.4100, L500.4050, L509.3000 ####[facility] [address] [place], [address] Triglyceride [Mass/Vol] 363 mg/dL High [facility] Comment on above: Order Comment: Order Date: 11/13/22Order Info: [id number] - CMPOrder Info: [id number] - LIPIDOrder Info: [id number] - TSH Result Comment: The drugs N-Acetylcysteine and Metamizole may falsely depress this assay. Serum Triglycerides Reference Interval Normal <150 mg/dL Borderline high 150 - 199 mg/dL High 200 - 499 mg/dL Very High > or = 500 mg/dL Performed By: #### L 501.9520, L500.4100, L500.4050, L509.3000 ####[facility] [address] [place], [address] No Panel InformationOrdered By: Rohith Mccormick on 01-22-2023 Estimated GFR (MDRD) Amer 130 mL/min >60 [facility] Comment on above: GFR Calc Estimated GFR (MDRD) Non-Af Amer 108 mL/min >60 [facility] Comment on above: Non- GFR Calc Thyroid Stimulating Hormone (TSH) 1.25 uIU/mL 0.358-3.74 [facility] Serum or plasma albumin roman urement (mass/volume)Ordered By: Rohith Mccormick on 01-22-2023 Albumin [Mass/Vol] 3.7 g/dL 3.2-5.0 [facility] Serum or plasma albumin/glob ulin mass ratioOrdered By: Rohith Mccormick on 01-22-2023 Albumin/Globulin [Mass ratio] 0.9 {ratio} 0.9-2.4 [facility] Serum or plasma calcium roman urement (mass/volume)Ordered By: Rohith Mccormick on 01-22-2023 Calcium [Mass/Vol] 8.9 mg/dL 8.5-10.1 [facility] Serum or plasma cholesterol in HDL measurement (mass/volume)Ordered By: Rohith Mccormick on 01-22-2023 Cholesterol in HDL [Mass/Vol] 53 mg/dL >40 [facility] Comment on above: The drugs N-Acetylcy steine and Metamizole may falsely depress this assay. Reference Range HDL <40 mg/dL Low HDL Cholesterol HDL >or= 60 mg/dL High HDL Cholesterol Serum or plasma cholesterol in VLDL measurement (mass/volume)Ordered By: Rohith Mccormick on 01-22-2023 Cholesterol in VLDL [Mass/Vol] 73 mg/dL 5-40 [facility] Serum or plasma creatinine m easurement (mass/volume)Ordered By: Rohith Mccormikc on 01-22-2023 Creatinine [Mass/Vol] 0.81 mg/dL 0.70-1.30 [facility] Comment on above: The validity of the calculated GFR & GFRAA in patients over 70 years has not been determined. Clinical correlation is essential. Serum or plasma low density lipoprotein (LDL) cholesterol measurement (mass/volume)Ordered By: Rohith Mccormick on 01-22-2023 Cholesterol in LDL [Mass/Vol] 77 mg/dL 0-130 [facility] Serum or plasma urea nitroge n measurement (mass/volume)Ordered By: Rohith Mccormick on 01-22-2023 Urea nitrogen [Mass/Vol] 16 mg/dL 7-18 [facility] Testosterone, Serum Totalon 01-22-2023 Testosterone [Mass/Vol] 141.58 ng/dL Normal [facility] Comment on above: Order Comment: Order Date: 11/13/22 Order Info: [id number] - SHANNA Result Comment: CENT RAL 90% REFERENCE RANGES MALE AGE <50 197.44 - 669.58 ng/dL MALE AGE > or = 50 187.72 - 684.19 ng/dL FEMALE AGE <50 8.38 - 35.01 ng/dL FEMALE AGE > or = 50 <7.00 - 35.92 ng/dL Effective as of 09/26/20 Performed By: #### L 501.9520, L500.4100, L500.4050, L509.3000 #### [facility] Laboratory [facility] [address] [place], [place], [address] Thin prep Papanicolaou smear with manual screeningOrdered By: Rohith Mccormick on 01-22-2023 Thin prep Papanicolaou smear with manual screening 15 U/L 15-37 [facility] Comment on above: Slight Hemolysis, Re sult may be falsely increased. Thin prep Papanicolaou smear with manual screening 7 5-15 [facility] Thyroid Stim Hormone (TSH)on 01-22-2023 TSH 1.25 uIU/mL Normal 0.358-3.74 [facility] Comment on above: Order Comment: Order Date: 11/13/22Order Info: [id number] - CMPOrder Info: [id number] - LIPIDOrder Info: [id number] - TSH Performed By: #### L 501.9520, L500.4100, L500.4050, L509.3000 ####[facility] [address] [place], [address] Basophil percentageon 2021 Chloride [Moles/Vol] 107 mmol/L 98-107 [facility] Work Phone: Glucose [Mass/Vol] 104 mg/dL 74-106 [facility] Work Phone: Comment on above: Fasting Glucose resu lt from 100 to 125 mg/dL suggests IMPAIRED HOMEOSTASIS per A.D.A. criteria. Potassium [Moles/Vol] 4.1 mmol/L 3.5-5.1 [facility] Work Phone: Sodium [Moles/Vol] 139 mmol/L 136-145 [facility] Work Phone: WBC (Bld) [#/Vol] 6.2 10*3/uL 4.4-11.0 [facility] Work Phone: Blood erythrocytes count (nu mber/volume)on 01-03-2022 RBC (Bld) [#/Vol] 4.99 10*6/uL 4.6-6.2 [facility] Work Phone: Blood hemoglobin measurement (mass/volume)on 01-03-2022 Hemoglobin (Bld) [Mass/Vol] 15.4 g/dL 13.0-16.5 [facility] Work Phone: Blood platelet mean volumeon 01-03-2022 Platelet mean volume (Bld) [Entitic vol] 11.1 fL 6.2-12.0 [facility] Work Phone: Determination of erythrocyte mean corpuscular volume (MCV)on 01-03-2022 MCV (RBC) [Entitic vol] 89.6 fL 80-94 [facility] Work Phone: Hematocrit Auto (Bld) [Volum e fraction]on 01-03-2022 Hematocrit (Bld) [Volume fraction] 44.7 % 40-54 [facility] Work Phone: Laboratory - Chemistry and C hemistry - challengeon 01-03-2022 CO2 [Moles/Vol] 25.0 mmol/L 21.0-32.0 [facility] Work Phone: Magnesium [Mass/Vol] 2.3 mg/dL 1.6-2.6 [facility] Work Phone: Urea nitrogen/Creatinine [Mass ratio] 16.7 mg/mg 10-20 [facility] Work Phone: Laboratory - Hematology and Cell countson 01-03-2022 Erythrocyte distribution width (RBC) [Entitic vol] 42.3 fL 35.1-43.9 [facility] Work Phone: Erythrocyte distribution width (RBC) [Ratio] 12.9 % 11.6-14.6 [facility] Work Phone: MCH (RBC) [Entitic mass] 30.9 pg 27.0-32.0 [facility] Work Phone: MCHC Auto (RBC) [Mass/Vol]on 01-03-2022 MCHC (RBC) [Mass/Vol] 34.5 g/dL 32-36 [facility] Work Phone: No Panel Informationon 01-03 Estimated GFR (MDRD) Amer 84 mL/min >60 [facility] Work Phone: Comment on above: GFR Calc Estimated GFR (MDRD) Non-Af Amer 69 mL/min >60 [facility] Work Phone: Comment on above: Non- GFR Calc Thyroid Stimulating Hormone (TSH) 1.63 uIU/mL 0.358-3.74 [facility] Work Phone: Platelets bldon 01-03-2022 Platelets (Bld) [#/Vol] 189 10*3/uL 150-450 [facility] Work Phone: Serum or plasma calcium roman urement (mass/volume)on 01-03-2022 Calcium [Mass/Vol] 8.9 mg/dL 8.5-10.1 [facility] Work Phone: Serum or plasma creatinine m easurement (mass/volume)on 01-03-2022 Creatinine [Mass/Vol] 1.20 mg/dL 0.70-1.30 [facility] Work Phone: Comment on above: The validity of the calculated GFR & GFRAA in patients over 70 years has not been determined. Clinical correlation is essential. Serum or plasma urea nitroge n measurement (mass/volume)on 01-03-2022 Urea nitrogen [Mass/Vol] 20 mg/dL 7-18 [facility] Work Phone: Thin prep Papanicolaou smear with manual screeningon 01-03-2022 Thin prep Papanicolaou smear with manual screening 7 5-15 [facility] Work Phone: Vital Signs Date Time Vital Sign Value Performing Clinician Belkis ng 02-13-2023 10:00-0500 Diastolic blood pressure 92 mm[Hg] [facility] 02-13-2023 10:00-0500 Heart rate 67 /min [facility] 02-13-2023 10:00-0500 Respiratory rate 16 /min [facility] 02-13-2023 10:00-0500 SaO2% (BldA) [Mass fraction] 96 % [facility] 02-13-2023 10:00-0500 Systolic blood pressure 133 mm[Hg] [facility] 02-13-2023 06:16-0500 Body height 185.42 cm [facility] 02-13-2023 06:16-0500 Body mass index (BMI) [Ratio] 30.3 kg/m2 [facility] 02-13-2023 06:16-0500 Body temperature 96.8 [degF] [facility] 02-13-2023 06:16-0500 Body weight 104.4 kg [facility] 03-01-2022 08:45-0500 Body temperature 97 [degF] Dr. Rohith Mccormick Work Phone: [facility] Work Phone: 03-01-2022 08:45-0500 Diastolic blood pressure 88 mm[Hg] Dr. Rohith Mccormick Work Phone: [facility] Work Phone: 03-01-2022 08:45-0500 Heart rate 68 /min Dr. Rohith Mccormick Work Phone: [facility] Work Phone: 03-01-2022 08:45-0500 Respiratory rate 20 /min Dr. Rohith Mccormick Work Phone: [facility] Work Phone: 03-01-2022 08:45-0500 SaO2% (BldA) [Mass fraction] 98 % Dr. Rohith Mccormick Work Phone: [facility] Work Phone: 03-01-2022 08:45-0500 Systolic blood pressure 117 mm[Hg] Dr. Rohith Mccormick Work Phone: [facility] Work Phone: 03-01-2022 07:58-0500 Body height 185.[address] Rohith Mccormick Work Phone: [facility] Work Phone: 03-01-2022 07:58-0500 Body mass index (BMI) [Ratio] 28.8 kg/m2 Dr. Rohith Mccormick Work Phone: [facility] Work Phone: 03-01-2022 07:58-0500 Body weight [address] Rohith Mccormick Work Phone: [facility] Work Phone: 02-01-2022 10:01-0500 Body mass index (BMI) [Ratio] 29.9 kg/m2 Dr. Rohith Mccormick Work Phone: [facility] Work Phone: 02-01-2022 10: Body weight 104.[address] Rohith Mccormick Work Phone: [facility] Work Phone: Encounters Encounter Date Encounter Type Care Provider Facility Start: 03-24-2023 ambulatory Rohith Ingram ity:[facility] Start: 03-24-2023 Non-patient / Non-visit Dr. Rohith Mccormick Work Phone: [facility] Start: 03-24-2023 End: 03-24-[address] Rohith Mccormick Work Phone: [facility] Work Phone: Start: 03-24-2023 End: 03-24-[address] Rohith Mccormick Work Phone: [facility]-Cardiovascular Services Work Phone: Start: 02-13-2023 End: 02-13-2023 Emergency department patient visit [facility] Facility:[facility] Start: 02-13-2023 End: 02-13-2023 Emergency department patient visit [facility]Emergency Department Work Phone: Start: 01-22-2023 End: 01-22-2023 ambulatory Rohith Mccormick [facility] Work Phone: Start: 01-22-2023 End: 01-22-2023 Patient encounter procedure [facility] Start: 03-01-2022 Non-patient / Non-visit Dr. Rohith Mccormick Work Phone: [facility] Start: 03-01-2022 End: 03-01-2022 Admission to same day surgery center Dr. Rohith Mccormick Work Phone: [facility]-Endoscopy Start: 03-01-2022 End: 03-01-[address] Rohith Mccormick Work Phone: [facility] Work Phone: Start: 02-01-2022 Non-patient / Non-visit Dr. Rohith Mccormick Work Phone: [facility] Start: 01-03-2022 End: 01-03-2022 ambulatory [facility] Work Phone: Start: 01-03-2022 End: 01-03-2022 Patient encounter procedure [facility]-Laboratory, [facility] Procedures Date Procedure Procedure Detail Performing Clinician Start: 03-24-2023 Radionuclide imaging of perfusion of myocardium under exercise stress Dr. Rohith Mccormick Work Phone: Start: 02-13-2023 Plain chest X-ray Start: 03-01-[address] Bishnu Mccormick Work Phone: Plan of Treatment Date Care Activity Detail Author Start: 02-13-2023 [facility] Start: 02-13-2023 [facility] Start: 03-01-2022 Patient discharge [facility] Work Phone: [facility] Work Phone: Patient Education ED Chest Pain, Uncertain Cause [facility] Work Phone: Patient referral [facility] Work Phone: Payers Date Payer Category Payer Self-pay [id number] 2023 Unknown [id number] Unknown NIKKIEM [id number] Unknown [id number] Unknown [id number] Unknown [id number] Unknown [id number] Social History Date Type Detail Facility Start: 12-02-2016 End: 02-13-2023 Tobacco smoking status NHIS Unknown if ever smoked [facility] Start: 1975 Sex Assigned At Male W [facility] Goals Date Patient Goal Desired Activity /State Mental Status Date Assessment Result Facility 02-13-2023 Cognitive function Level Of Cons ciousness Awake;Alert;Appropriate;Follow s Commands [facility] Work Phone: 03-01-2022 Cognitive function Voice/Name [facility] Work Phone: Discharge summary 02-13-2023 Note Date & Type Note Facility 02-13-2023 Discharge summary Note Date/Time February 13, 2023 7:20am [facility] Medical Records Department [address] [place] [address] Emergency Department Summary 02/13/23 MR#: [id number] Acct: [id number] Name: IZABELLA ROWLAND Rep #:[id number] : 1975 47 From: Reva Aramndo PCP: Dr. Rohith Mccormick MD Status: REG ER Location: ED HPI History of Present Illness Chief Complaint: Chest Pain Informant: patient Narrative Narrative: Patient is a 47-year-old male with history of diabetes, hyperlipidemia and family history of coronary artery disease presenting with chest pain. Patient states has been getting mild intermittent chest pain over the left side for pastfew weeks. He actually has a stress test scheduled for March 10. He notes that he went to the gym this morning and noticed a sharp pain underneath his left nipple that radiated up to his shoulder and neck. He notes that when he was in radiology getting his chest x-ray taken here he took a deep breath it wasslightly worse. He denies any shortness of breath or difficulty breathing. About 3 weeks ago he did have a mild cold and now has an intermittent cough but is not much of it. Notes when coming here he did have some chills but denies any diaphoresis, nausea or vomiting. Did have a cardiac catheterization 15 years ago which he states was normal. Patient has had some recent travel to [place] but denies any significantly long flights or immobilization. Denies anyhistory of DVT or PE. No other complaints or concerns at this time. [facility] Medical History Dietary restriction Heartburn History of irregular heartbeat Hyperlipidemia, unspecified Injury of head and neck Leg cramps Non-smoker Normal Holter exam Type 2 diabetes mellitus without complications Home Medications empagliflozin 10 mg tablet (Jardiance) 10 mg PO DAILY 02/01/22 [History Last Taken Unknown] metformin 500 mg tablet 500 mg PO BID 02/01/22 [History Last Taken Unknown] rosuvastatin 5 mg tablet (Crestor) 5 mg PO DAILY 02/01/22 [History Last Taken Unknown] geriatric multivitamin-min 1 tab PO DAILY 02/28/22 [History Last Taken Unknown] Allergy/AdvReac Type Severity Reaction Status Date / Time No Known Allergies Allergy Verified 03/01/22 07:57 Family History Father Colon cancer Mother Atrial flutter Surgical History History of hernia repair Hx of hand surgery Social History Smoking Status: Never smoker ROS ROS ED Constitutional Constitutional ED: Denies chills or fever(s) Eyes Eyes: Denies change in vision Cardiovascular Cardiovascular: Reports as per HPI and chest pain; Denies palpitations Respiratory/Chest Respiratory/Chest: Denies cough, dyspnea or dyspnea on exertion Gastrointestinal Gastrointestinal: Denies abdominal pain, nausea or vomiting Musculoskeletal Musculoskeletal: Denies arthralgias, back pain or myalgias Integumentary Denies rash Neurologic Neurologic: Denies headache(s) or paresthesias Hematologic/Lymphatic Hematologic/Lymphatic: Denies easy bleeding or easy bruising EXAM Physical Exam Const Vital Signs: 02/13/23 06:16 02/13/23 06:18 02/13/23 07:05 Temperature 96.8 F L Temperature Source Temporal Pulse Rate 71 Respiratory Rate 14 Respiratory Effort Normal Blood Pressure Blood Pressure Mean Pulse Ox 98 Oxygen Delivery Method Room Air Room Air 02/13/23 07:05 02/13/23 08:13 Temperature Temperature Source Pulse Rate 60 Respiratory Rate 14 Respiratory Effort Blood Pressure 153/93 H 128/88 H Blood Pressure Mean 113 101 Pulse Ox 94 Oxygen Delivery Method Room Air Positive well nourished and well developed General Appearance ED: well developed and NAD HEENT Reports moist mucous membranes Eyes PERRL Neck supple and no JVD Chest Wall inspection of chest normal and palpation of chest normal Resp normal respiratory effort and clear to auscultation bilaterally Cardio regular rate, regular rhythm and no murmurs Peripheral Pulses: pulses 2+ throughout GI normal to inspection, nondistended, normoactive bowel sounds, soft to palpation and non-tender Extremity normal to inspection General Extremety ED: Negative for edema General Extremity: Negative for edema Neuro oriented x3 Sensorium / Orientation: awake and alert Motor Exam: Negative for general weakness Psych mental status grossly normal Skin no rashes or lesions noted and no wounds Heart Score History: Slightly/Non-Suspicious ECG: Normal Age: >45 - <65 years Risk Factors: >/= 3 Risk Factors or History of CAD Score: 3 MDM MDM MDM Narrative Medical decision making narrative: Patient is evaluated for intermittent chest pain has been waxing and waning overthe past few weeks. Seems to have a pleuritic component. I does have up a strong history of coronary artery disease with his brothers and risk factors including diabetes and hyperlipidemia. Will obtain cardiac workup including delta high-sensitivity troponin. Will also check a D-dimer given the pleuritic nature of the pain and his travel to and from [place]. Anticipate that if workup is negative patient can be discharged home. Patient agreeable at this time. D dimer is normal. Initial high sensitivity troponin is normal. CBC and CMP otherwise largely unremarkable. He is mildly hyperglycemic but has known history of diabetes. On repeat evaluation has no further chest pain. Will be discharged home if delta high-sensitivity troponin is normal. Will follow-up outpatient for stress test. He is given return precautions. Patient agreeable to plan of care. Lab Data Attestation: I reviewed the patient's lab results. Labs: Laboratory Results - last 24 hr 02/13/23 02/13/23 06:01 07:25 WBC 4.6 RBC 4.78 Hgb 14.1 Hct 42.7 MCV 89.3 MCH 29.5 MCHC 33.0 RDW Std Deviation 41.2 RDW Coeff of Taylor 12.5 Plt Count 182 MPV 10.0 Immature Gran % (Auto) 0.400 Neut % (Auto) 51.2 Lymph % (Auto) 34.6 [place] % (Auto) 10.7 H Eos % (Auto) 2.4 Baso % (Auto) 0.7 Absolute Neuts (auto) 2.3 Absolute Lymphs (auto) 1.58 Nucleated RBC % 0 D-Dimer Quant (PE/DVT) < 0.27 L Sodium 140 Potassium 3.7 Chloride 107 Carbon Dioxide 26.0 Anion Gap 7 BUN 16 Creatinine 0.81 Estim Creat Clear Calc 127.41 Est GFR (MDRD) Af Amer 131 Est GFR (MDRD) Non-Af 108 BUN/Creatinine Ratio 19.8 Glucose 195 H Calcium 8.3 L Troponin I High Sens 4 Radiography Chest X-Ray - ED: 2 View, Read by ED Physician and No Acute Disease Diagnostic Testing: Clinical Impression(s) from Imaging Studies Chest X-Ray 02/13/23 06:38 IMPRESSION: No radiographic evidence of acute cardiopulmonary disease. Electronically Signed: Maykel Huff MD at 7:17 EST , Rhythm Strip Rhythm Strip: Sinus Rhythm Rate: 72 Ectopy: None EKG Initial EKG: Attestation: I personally reviewed and interpreted this EKG as follows: Interpretation: Sinus Rhythm Comments: Normal sinus rhythm at a rate of 72 bpm Normal axis Possible left atrial enlargement Normal intervals Normal ST segments Computer interpretation shows nonspecific intraventricular block which I disagree with and believe that this is normal sinus rhythm Prior EKG tracings: not available for review Prior: No Prior Discharge Plan Triage Chief Complaint: Chest Pain ED Provider: Reva Joya Dx/Rx/DC Orders Clinical Impression: Diabetes mellitus, Chest pain Instructions: ED Chest Pain, Uncertain Cause Prescriptions: No Action metformin 500 mg tablet 500 mg PO BID Jardiance 10 mg tablet 10 mg PO DAILY rosuvastatin [Crestor] 5 mg tablet 5 mg PO DAILY Multivitamin, Mineral Formula Tablet 1 tab PO DAILY Primary Care Provider: Rohith Mccormick Referrals: Rohith Mccormick MD [Primary Care Provider] - Activity Restrictions/Additional Instructions: The exact cause of your chest pain is not clear however based on your workup today there does not appear to be any acute cardiac event occurring. At this time we think you are safe to follow-up outpatient. Please follow-up with your outpatient stress test as already scheduled. Return to the ER if you have a progression or worsening of your symptoms or further concerns. What to do if you have Problems For any increased pain, shortness of breath, bleeding, nausea or vomiting, chestpain, or any unexpected problems, contact your Primary Care Provider. Call [facility] ([phone]) or report to the closest Emergency Room. Call 911 if necessary. 02/13/23 0951 <Electronically signed by Reva Joya DO> Cosigner Signature (if applicable): CC: Dr. Rohith Mccormick MD ~ Signed [facility] Work Phone: Evaluation note Note Date & Type Note Facility Evaluation note No assessment information availa ble [facility] Work Phone: Evaluation note Note Date & Type Note Facility Evaluation note Diagnosis Onset Date Encounter for screening for malignant neoplasm of colon acute [facility] Work Phone: Hospital Discharge instructions Note Date & Type Note Facility Hospital Discharge instructions Additional Instructions The exact cause of your chest pain is not clear however based on your workup today there does not appear to be any acute cardiac event occurring. At this time we think you are safe to follow-up outpatient. Please follow-up with your outpatient stress test as already scheduled. Return to the ER if you have a progression or worsening of your symptoms or further concerns. [facility] Work Phone: Advance Directives Advance Directive Response Recorded Date/ Time Living Will No December 02 7 7:55am Power of National Coverage Specialist No December 02 017 7:55am Advance Directive Response Recorded Date/ Time Living Will No February 28 022 8:28am Power of National Coverage Specialist No February 28, 2022 8:28am Advance Directive Response Recorded Date/ Time Living Will No February 13 023 6:18am Power of National Coverage Specialist No February 13, 2023 6:18am Chief Complaint and Reason for Visit Chief Complaint Amb Documentation Reason for Visit Encounter for screen ing for malignant neoplasm of colon Chief Complaint CP CHEST PAIN CHEST PAIN Chief Complaint CP Family History Relationship Condition Age at Onset Recorded Date/T vanna father Malignant neoplasm of colon Unknown mother Atrial flutter Unknown Summary Purpose Additional Source Comments Goals (unrecognized section and content) Goals may be documented in a n alternate sectionGoals may be documented in an alternate sectionGoals may be documented in an alternate sectionGoals may be documented in an alternate section Care Teams (unrecognized sec tion and content) Team Status: Active Member Role Status Dates Dr. Rohith Mccormick MD Family Provider Active Dr. Rohith Mccormick MD Primary Care Provider Activ e Team Status: Inactive Member Role Status Dates Dr. Rohith Mccormick MD Primary Care Provider, Atte nding Provider Active Team Status: Active Member Role Status Dates Dr. Rohith Mccormick MD Primary Care Provider, Referring Provider, Other Provider Active Dr. Andrea Giles MD Attending Provider Active Team Status: Inactive Member Role Status Dates Dr. Rohith Mccormick MD Primary Care Provider, Attending Provider, Referring Provider Active Team Status: Inactive Member Role Status Dates Dr. Rohith Mccormick MD Primary Care Provider Activ e Dr. Reva Joya DO Attending Provider, Emergency P angie Active Team Status: Inactive Member Role Status Dates Dr. Rohith Mccormick MD Primary Care Provider Activ e Dr. Reva Joya DO Emergency Provider Active (unrecognized sect ion and content) No Status Records Found INFORMATION SOURCE (unrecogn ized section and content) DATE CREATED AUTHOR 04/02/2023 [facility] FOR RECORDS PERTAINING TO PATIENTS WHO ARE OR HAVE BEEN ENROLLED IN A CHEMICAL DEPENDENCY/SUBSTANCEABUSE PROGRAM, SOME INFORMATION MAY BE OMITTED. This clinical summary was aggregated from multiple sources. Caution should be exercised in using it in the provision of clinical care. This summary normalizes information from multiple sources, and as a consequence, information in this document may materially change the coding, format and clinical context of patient data. In addition, data may be omitted in some cases. CLINICAL DECISIONS SHOULD BE BASED ON THE PRIMARY CLINICAL RECORDS. [facility] [employer] provides no warranty or guarantee of the accuracy or completeness of information in this document.
[2024-12-20 15:23] LABS: AST(SGOT) 21 U/L (<=37); Alanine Aminotransfer ALT/SGPT 35 U/L (<=46); Albumin, Serum 4.5 g/dL (3.5-5.0); Alkaline Phosphatase 83 U/L (40-129); Anion Gap 12 (5-15); BUN 14 mg/dL (4-19); BUN/Creat Ratio 20.3 RATIO (10-20); Calcium,Total 10.0 mg/dL (7.6-11.0); Carbon Dioxide 25.2 mmol/L (21.0-32.0); Chloride 101 mmol/L (98-108); Globulin 3.1 g/dL (2.2-4.2); Glucose 90 mg/dL (70-99); Potassium 4.1 mmol/L (3.3-5.1)
== END | disposition home or self-care (01) ==
PROVIDERS: PCP Family Medicine; Visit Provider Family Medicine
DX: E11.9 Type 2 diabetes mellitus without complications (principal); E78.5 Hyperlipidemia, unspecified
CPT/HCPCS: 36415; 80053; 84403; 84443